=== PATIENT | male | born 1945 | race Caucasian/White ===

== ENCOUNTER 2021-04-26 09:22 | Day surgery (SDC) | payer MEDICARE, OTHER ==
[~2021-04-26] VITALS: Ht 182.9 cm; Wt 66.4 kg
[2021-04-26] MEDS ORDERED: ACYC-40 PO (09:55)
[2021-04-26] MEDS ORDERED: FENTANYL PF 250 MCG/5ML ONE (10:27)
[2021-04-26 10:30] VITALS: BP 123/72
[2021-04-26] MEDS ORDERED: CEFAZOLIN 1,000 MG ONE (10:30)
[2021-04-26] MEDS ORDERED: CHLORHEXIDINE 15 ML UDC PO ONE (10:30)
[2021-04-26] MEDS ORDERED: PROPOFOL 10 MG/ML, 20ML ONE (10:30)
[2021-04-26] MEDS ORDERED: ROCURONIUM 10MG/ML,5ML ONE (10:30)
[2021-04-26] MEDS ORDERED: LACTATED RINGERS 1,000 ML IV SCH (10:30)
[2021-04-26] MEDS ORDERED: GLYCOPYRROLATE 0.2MG/1ML, 5ML ONE (10:30)
[2021-04-26] MEDS ORDERED: NEOSTIGMINE 1 MG/ML, 10ML ONE (10:30)
[2021-04-26] MEDS ORDERED: BUPIVACAINE/PF 0.5% ONE (10:33)
[2021-04-26] MEDS ORDERED: EPINEPHRINE 1 MG/ML, 1ML ONE (10:33)
[2021-04-26] MEDS ORDERED: ONDANSETRON 2MG/ML, 2ML IVPush PRN (11:00)
[2021-04-26] MEDS ORDERED: LABETALOL 5MG/ML, 20ML IV PRN (11:00)
[2021-04-26] MEDS ORDERED: MEPERIDINE/PF 25MG/0.5ML IVPush PRN (11:00)
[2021-04-26] MEDS ORDERED: hydrALAzine 20 MG/ML, 1ML IV PRN (11:00)
[2021-04-26] MEDS ORDERED: OXYcodone 5 MG/5 ML ORAL.SOL UDC PO PRN (11:00)
[2021-04-26] MEDS ORDERED: ACETAMINOPHEN 325 MG TABLET PO PRN (11:00)
[2021-04-26] MEDS ORDERED: morphine SULFATE 10 MG/ML, 1ML IVPush PRN (11:00)
[2021-04-26] MEDS ORDERED: HYDROmorphone 1 MG/ML, 1ML INJ IVPush PRN (11:00)
[2021-04-26] MEDS ORDERED: OXYC5TAB2 PO ×3 (12:16→16:46)
[2021-04-26] MEDS ORDERED: ACET-1600 PO ×3 (12:16→16:46)
[2021-04-26] MEDS ORDERED: IBUP-1223 PO ×3 (12:16→16:46)
[2021-04-26] MEDS ORDERED: OXYcodone 5 MG/5 ML ORAL.SOL UDC ONE (12:24)
[2021-04-26] MEDS ORDERED: FENTANYL PF 100 MCG/2ML ONE (12:24)
[2021-04-26] MEDS ORDERED: ACETAMINOPHEN 650 MG/20.3 ML UDC ONE (12:24)
[2021-04-26] MEDS: FENTANYL PF 100 MCG/2ML IV PRN ×2 (12:27→12:36)
== END 2021-04-26 17:00 | disposition home or self-care (01) ==
LOC: OUT 09:22
PROVIDERS: ATTEND Surgery
DX: K40.90 Unilateral inguinal hernia, without obstruction or gangrene, not specified as recurrent (principal); F12.90 Cannabis use, unspecified, uncomplicated; Z20.822 Contact with and (suspected) exposure to COVID-19; Z79.899 Other long term (current) drug therapy; Z87.891 Personal history of nicotine dependence; Z80.42 Family history of malignant neoplasm of prostate
CPT/HCPCS: 49650; 76857; 87635; 93005; C1781; J0171; J0690; J2704; J2710; J3010; J7120